=== PATIENT | male | born 1990 | race Caucasian/White ===

== ENCOUNTER 2019-02-24 21:16 | Emergency (ER) | payer MEDICAID ==
[~2019-02-24] VITALS: Ht 172.7 cm; Wt 104.0 kg
[2019-02-24] MEDS ORDERED: HYDROCODONE/ACETAMINOPHEN 5/325MG TABLET PO ONE (23:45)
[2019-02-25] MEDS ORDERED: KETOROLAC 30MG/ML VIAL IM ONE (00:45)
[2019-02-25 02:04] VITALS: BP 159/75
== END 2019-02-25 02:25 | disposition home or self-care (01) ==
LOC: ER 21:16
DX: S93.492A Sprain of other ligament of left ankle, initial encounter (principal); S80.02XA Contusion of left knee, initial encounter; W10.8XXA Fall (on) (from) other stairs and steps, initial encounter; Y93.89 Activity, other specified; Y92.89 Other specified places as the place of occurrence of the external cause; Y99.8 Other external cause status; F12.10 Cannabis abuse, uncomplicated
CPT/HCPCS: 73562; 73610; 73630; 96372; 99283; J1885

== ENCOUNTER 2020-01-19 08:02 | Emergency (ER) | payer MEDICAID ==
[~2020-01-19] VITALS: Ht 177.8 cm; Wt 110.0 kg
[2020-01-19 09:57] VITALS: BP 162/98
== END 2020-01-19 10:05 | disposition home or self-care (01) ==
LOC: ER 08:10
DX: J20.9 Acute bronchitis, unspecified (principal)
CPT/HCPCS: 71045; 99283

== ENCOUNTER 2022-04-11 16:04 | Emergency (ER) | payer MEDICAID ==
[~2022-04-11] VITALS: Ht 172.7 cm; Wt 107.0 kg
[2022-04-11 16:20] VITALS: BP 135/92
[2022-04-11] MEDS ORDERED: IBUPROFEN 600MG TABLET PO STA (18:55)
[2022-04-11] MEDS ORDERED: IBUP-2029 MT (19:41)
== END 2022-04-11 19:50 | disposition home or self-care (01) ==
LOC: ER 16:04
DX: R07.89 Other chest pain (principal); F12.10 Cannabis abuse, uncomplicated; I10 Essential (primary) hypertension; E78.00 Pure hypercholesterolemia, unspecified
CPT/HCPCS: 71045; 82962; 93005; 99283